=== PATIENT | male | born 1990 | race Caucasian/White ===

== ENCOUNTER 2020-09-26 09:51 | Day surgery (SDC) | payer OTHER ==
[2020-09-25 09:28] VITALS: BMI 17.1
[2020-09-26 10:29] VITALS: TEMP 97.8
[2020-09-26] MEDS ORDERED: LIDOCAINE 1% (10MG/ML) FOR IV START INTRADERMA ONE (10:35)
[2020-09-26] MEDS ORDERED: LACTATED RINGERS 1,000 ML IV ONE (10:35)
[2020-09-26] MEDS ORDERED: PROPOFOL 10 MG/ML 20 ML VIAL IV ONE (12:01)
[2020-09-26] MEDS ORDERED: LIDOCAINE 1% INJ 10MG/ML (20 ML MDV) ONE (12:01)
--- NOTE | 2020-09-26 12:23 | P.PCN ---
Date of Procedure: 09/26/20 Description of Procedure: BRIEF HISTORY: Patient is a 30-year-old male presenting for outpatient es ophagogastroduodenoscopy for evaluation of epigastric abdominal pain, odynophagia, GERD. Patient reports symptoms of chest and abdominal pain and epigastric region and severe resulting in decreased oral intake. He reports odynophagia. PROCEDURE PERFORMED: Esophagogastroduodenoscopy with biopsy. PREOPERATIVE DIAGNOSIS: Epigastric abdominal pain, odynophagia, GERD. ESTIMATED BLOOD LOSS: Minimal. IV sedation per anesthesia. PROCEDURE: After informed consent was obtained, the patient was brought into the endoscopy unit. IV sedation was administered by Anesthesia under continuous monitoring. Initially the Olympus GIF-190 video endoscope was inserted into the mouth. Esophagus intubated without any difficulty. It was gradually advanced into the stomach and duodenum and carefully examined. The bulb and the second part of the duodenum appeared normal, with biopsies taken. The scope at this time was withdrawn to the stomach, adequately insufflated with air, and upon careful examination, mucosa of the antrum, body, cardia and the fundus appeared normal, except for some mild punctate erythema throughout the stomach suggestive of mild gastritis with biopsies of the antrum and body taken. The scope was then withdrawn into the esophagus. The GE junction was located at 41 cm from the incisors. The esophagus was significant for multiple cratered subcentimeter nonbleeding ulcers in the mid and distal esophagus with multiple biopsies taken. The patient tolerated the procedure well. IMPRESSION: 1. Multiple cratered esophageal ulcers concerning for viral infection. 2. Mild gastritis. 3. Biopsies of the duodenum, antrum and body and esophageal ulcers in the mid and lower esophagus. RECOMMENDATIONS: The findings of this examination were discussed with the patient and his family. Okay to resume diet. Okay to resume medications. Await pathology from biopsies. Patient should continue on current medical regimen of PPI therapy and sucralfate. Patient should follow-up in the GI clinic next week for results of biopsies and management will be tailored based on findings.
[2020-09-26 13:22] VITALS: BP 119/75; PULSE 81; RESP 16
== END 2020-09-26 13:57 | disposition home or self-care (01) ==
LOC: ORWHC2ENDO 09:51
PROVIDERS: ATTEND Internal Medicine
DX: K22.10 Ulcer of esophagus without bleeding (principal); K29.50 Unspecified chronic gastritis without bleeding; K21.00 Gastro-esophageal reflux disease with esophagitis, without bleeding; F17.210 Nicotine dependence, cigarettes, uncomplicated; Z91.09 Other allergy status, other than to drugs and biological substances; Z79.899 Other long term (current) drug therapy; Z98.890 Other specified postprocedural states
CPT/HCPCS: 88305; 88312; 88342; 43239; J2001; J2704